=== PATIENT | female | born 1980 | race Caucasian/White ===

== ENCOUNTER 2024-08-15 10:59 | Emergency (ER) | payer OTHER, SELFPAY ==
[2024-08-15] VITALS (14 sets, daily range): BP systolic 124–141; BP diastolic 81–92; PULSE 82–96; RESP 14–22; TEMP 36.6; O2SAT 96–100
--- NOTE | ~2024-08-15 | XR_ITS ---
XR chest 2V Ordering provider: Reji Richards MD History: 43 years Female with . seizures/syncopal episodes . Comparison: None. FINDINGS: MEDIASTINUM: The cardiac silhouette is not enlarged. LUNGS: No infiltrates, effusions or pneumothorax. OTHER: No free air under the diaphragm. IMPRESSION: No acute cardiopulmonary pathology. Reviewed, dictated and finalized at location A.
--- NOTE | ~2024-08-15 | CT_ITS ---
CT brain wo con Ordering provider: Grayson Cummings MD History: 43 years Female with . seizure . Comparison: None. Technique: CT of the head without contrast. Radiation reduction technique utilized.The dose-length pr oduct was 983.67 mGy-cm. FINDINGS: BRAIN PARENCHYMA AND CSF SPACES: No midline shift, mass effect or hemorrhage. The brain parenchyma a nd CSF spaces are otherwise normal. VISUALIZED PARANASAL SINUSES: Bilateral ethmoid sinus disease. Bilateral maxillary sinus disease. MAS TOIDS: Well aerated. BONES: The bones appear intact. SOFT TISSUES: Visualized nasopharynx is normal. Superficial soft tissues are normal. IMPRESSION: No acute intracranial findings. Bilateral maxillary and ethmoid sinus disease. Reviewed, dictated and finalized at location A.
--- NOTE | 2024-08-15 11:11 | ECG_ITS ---
Test Date: 2024-08-15 11:03:59 Measurements Intervals [place] Rate: 83 P: 69 WI: 157 QRS: 71 QRSD: 96 T: 57 QT: 421 QTc: 496 Interpretive Statements SINUS RHYTHM No previous ECG available for comparison Electronically Signed On 08-15-2024 15:03:51 CDT by Stiven Suazo M.D.
[2024-08-15 11:26] LABS: Basophils Absolute Auto 0.1 K/mm3 (0.0-0.1); Basophils Percent Auto 0.7 % (0.2-1.2); Eosinophils Absolute Auto 0.2 K/mm3 (0-0.3); Eosinophils Percent Auto 1.6 % (0-4.4); Hematocrit 42.8 % (37.0-47.0); Hemoglobin 13.9 g/dL (12.0-15.0); Immature Granulocyte Absolute 0.03 K/mm3 (0.00-0.031); Immature Granulocyte Percent A 0.3 % (0-0.5); Lymphocytes Percent Auto 17.2 % (18.3-44.2); Mean Corpuscular HGB Conc 32.5 g/dl (32-36); Mean Corpuscular Hemoglobin 31.2 pg (26-34); Mean Corpuscular Volume 96.2 fl (80-100); Mean Platelet Volume 9.6 fl (7.4-10.4); Monocytes Absolute Auto 0.7 K/mm3 (0.1-0.6); Monocytes Percent Auto 6.4 % (2.6-8.5); Neutrophils Absolute Auto 7.7 K/mm3 (1.3-6.7); Neutrophils Percent Auto 73.8 % (45.5-73.1); Platelet Count Result 339 k/mm3 (150-375); Red Blood Count 4.45 M/mm3 (4.2-5.4); Red Cell Distribution Width 13.9 % (11.5-14.5); White Blood Count 10.5 K/mm3 (4.5-10.0)
[2024-08-15 11:43] LABS: Alanine Aminotransferase 22 U/L (6-35); Albumin Level 4.3 g/dL (3.5-5.1); Alkaline Phosphatase 69 U/L (38-126); Anion Gap 7 mmol/L (4-12); Aspartate Amino Transferase 29 U/L (14-36); Bilirubin,Total 0.3 mg/dL (0.2-1.3); Blood Urea Nitrogen 12 mg/dL (7-17); Carbon Dioxide 25 mmol/L (22-30); Chloride 106 mmol/L (98-107); Estimated CRCL calculation 79 ml/min; Estimated Glomerular Filt Rate > 60; Glucose 95 mg/dL (65-110); Potassium 4.2 mmol/L (3.4-5.0); Sodium 138 mmol/L (137-145)
[2024-08-15 11:58] LABS: BEDSIDEPREGUCG Negative (Negative)
[2024-08-15 13:41] LABS: Ethanol < 10 mg/dL (<10)
[2024-08-15 13:43] LABS: Creatine Kinase 80 U/L (30-135)
[2024-08-15 14:11] LABS: Amphetamine Screen Urine Negative (Negative); Barbiturate Screen Urine Negative (Negative); Benzodiazepines Screen Urine Negative (Negative); Cannabinoid Screen Urine Positive (Negative); Cocaine Screen Urine Positive (Negative); Methadone Screen Urine Negative (Negative); Opiate Screen Urine Negative (Negative); Phencyclidine Screen Urine Negative (Negative)
--- NOTE | 2024-08-15 14:42 | ED_ITS ---
HPI - General Adult General Chief complaint: Seizure Stated complaint: seizure-like activity Time Seen by Provider: 08/15/24 12:41 History of Present Illness HPI narrative: Patient is a 43-year-old female who presents ER with concerns for possible seizure. Reports she was shaking and was witnessed by her boyfriend but she does not know what looked like or how long it lasted. No loss of bowel or bladder. No tongue biting. Reports she had a febrile seizure as a baby but no seizures in the past. Reports she was using cocaine last night and also uses marijuana. No known trauma. No other complaints at this time. Review of Systems 2 Review of Systems: All systems reviewed & are unremarkable except as noted in HPI and below Constitutional: Constitutional: Reports no additional constitutional complaints ENT: Reports system reviewed and no additional complaints, except as documented Cardiovascular: Cardiovascular: Reports no additional cardiovascular complaints Respiratory: Respiratory: Reports no additional respiratory complaints Musculoskeletal: Musculoskeletal: Reports no additional musculoskeletal complaints Neurologic: Reports system reviewed and no additional complaints, except as documented PMFSH Past Medical History Medical History (Updated 08/15/24 @ 14:48 by Grayson Cummings MD) Febrile seizures Surgical History Surgical History (Updated 08/15/24 @ 14:44 by Grayson Cummings MD) No pertinent past surgical history Exam 2 Narrative: GENERAL: Well-appearing, well-nourished, and in no acute distress. HEAD: Normocephalic, atraumatic. EYES: PERRL and EOMI. ENT: Mucous membranes moist. No dental trauma. No tongue biting. NECK: Supple. CHEST: Clear to auscultation. No respiratory distress. HEART: Regular rate and rhythm. Normal peripheral pulses. ABDOMEN: Soft, nontender, nondistended. EXTREMITIES: Normal range of motion. No edema. SKIN: Warm, dry, no rash. NEURO: Alert and oriented x3. PSYCH: Normal mood and affect. Course Course Emergency Course: Workup unremarkable with exception of positive UDS which is consistent with patient's reported drug use. Seizure-free here. Discharged home. No anti epileptics does there is been no witnessed activity and it would have likely been provoked by narcotic use any ways. Discussed discontinuing substance abuse and also having a healthy sleep cycle/lifestyle. Vital Signs Vital signs: Vital Signs Temperature 97.9 F 08/15/24 10:59 Pulse Rate 85 08/15/24 10:59 Respiratory Rate 19 08/15/24 10:59 Blood Pressure 141/92 H 08/15/24 10:59 Pulse Oximetry 97 08/15/24 10:59 Oxygen Delivery Room Air 08/15/24 10:59 Temperature 97.9 F 08/15/24 10:59 Pulse Rate 90 08/15/24 13:30 Respiratory Rate 18 08/15/24 13:30 Blood Pressure 124/87 08/15/24 11:30 Pulse Oximetry 98 08/15/24 13:30 Oxygen Delivery Room Air 08/15/24 11:21 Medical Decision Making Vital Signs Vital Signs: Vital Signs Temperature 97.9 F 08/15/24 10:59 Pulse Rate 85 08/15/24 10:59 Respiratory Rate 19 08/15/24 10:59 Blood Pressure 141/92 H 08/15/24 10:59 Pulse Oximetry 97 08/15/24 10:59 Oxygen Delivery Room Air 08/15/24 10:59 Temperature 97.9 F 08/15/24 10:59 Pulse Rate 90 08/15/24 13:30 Respiratory Rate 18 08/15/24 13:30 Blood Pressure 124/87 08/15/24 11:30 Pulse Oximetry 98 08/15/24 13:30 Oxygen Delivery Room Air 08/15/24 11:21 Lab Data 08/15/24 11:18 08/15/24 11:18 Labs: Lab Results 08/15/24 08/15/24 08/15/24 Range/Units 11:18 11:56 13:31 WBC 10.5 H (4.5-10.0) K/mm3 RBC 4.45 (4.2-5.4) M/mm3 Hgb 13.9 (12.0-15.0) g/dL Hct 42.8 (37.0-47.0) % MCV 96.2 (80-100) fl MCH 31.2 (26-34) pg MCHC 32.5 (32-36) g/dl RDW 13.9 (11.5-14.5) % Plt Count 339 (150-375) k/mm3 MPV 9.6 (7.4-10.4) fl Immature Gran % (Auto) 0.3 (0-0.5) % Neut % (Auto) 73.8 H (45.5-73.1) % Lymph % (Auto) 17.2 L (18.3-44.2) % [place] % (Auto) 6.4 (2.6-8.5) % Eos % (Auto) 1.6 (0-4.4) % Baso % (Auto) 0.7 (0.2-1.2) % Lymph # (Auto) 1.80 (0.9-3.2) K/mm3 [place] # (Auto) 0.7 H (0.1-0.6) K/mm3 Eos # (Auto) 0.2 (0-0.3) K/mm3 Baso # (Auto) 0.1 (0.0-0.1) K/mm3 Abs Immat Gran (auto) 0.03 (0.00-0.031) K/mm3 Absolute Neuts (auto) 7.7 H (1.3-6.7) K/mm3 Absolute Nucleated RBC 0.000 (0.0-0.012) K/mm3 Nucleated RBC % 0.0 (0.0-0.2) % Sodium 138 (137-145) mmol/L Potassium 4.2 (3.4-5.0) mmol/L Chloride 106 (98-107) mmol/L Carbon Dioxide 25 (22-30) mmol/L Anion Gap 7 (4-12) mmol/L BUN 12 (7-17) mg/dL Creatinine 0.63 L (0.7-1.0) mg/dL Estim Creat Clear Calc 79 ml/min Estimated GFR > 60 (59 - ) Glucose 95 (65-110) mg/dL Calcium 9.0 (8.4-10.2) mg/dL Total Bilirubin 0.3 (0.2-1.3) mg/dL AST 29 (14-36) U/L ALT 22 (6-35) U/L Alkaline Phosphatase 69 (38-126) U/L Total Creatine Kinase 80 (30-135) U/L Total Protein 7.0 (6.3-8.2) g/dL Albumin 4.3 (3.5-5.1) g/dL POC Urine HCG, Qual Negative (Negative) Urine Opiates Screen Negative (Negative) Urine Methadone Screen Negative (Negative) Ur Barbiturates Screen Negative (Negative) Ur Phencyclidine Scrn Negative (Negative) Ur Amphetamine Screen Negative (Negative) U Benzodiazepines Scrn Negative (Negative) Urine Cocaine Screen Positive A (Negative) U Cannabinoids Screen Positive A (Negative) Ethyl Alcohol < 10 (<10) mg/dL Imaging Data Radiologist's impression: ITS Impressions Chest X-Ray 08/15/24 11:56 IMPRESSION: No acute cardiopulmonary pathology. Head CT 08/15/24 13:16 IMPRESSION: No acute intracranial findings. Bilateral maxillary and ethmoid sinus disease. ECG Data EKG #1: ECG completion date: 08/15/24 ECG completion time: 11:03 EKG Interpretation: normal rate (83), sinus rhythm, non-specific ST changes, normal QRS, normal QT and NL axis Discharge Plan Discharge Clinical Impression: Drug abuse Patient Disposition: Home Condition: Stable Instructions: Polysubstance Use Disorder (ED) Additional Instructions: Return ER if you lose consciousness, you have additional possible seizure activity, develop fever over 100.4? F, you have additional concerns. Avoid using illicit substances as they may provoke a seizure or other undesirable side effects. Patient Language: Icelandic Follow-up/Referrals: Zain Stover MD [Physician] - 1 Week UNKNOWN,DOCTOR [Primary Care Provider] -
== END 2024-08-15 15:31 | disposition home or self-care (01) ==
PROVIDERS: Emergency Medicine; Emergency Provider Emergency Medicine
DX: F14.10 Cocaine abuse, uncomplicated (principal); F12.10 Cannabis abuse, uncomplicated
CPT/HCPCS: 36415; 70450; 71046; 80053; 80307; 81025; 82077; 82550; 85025; 93005; 99284